=== PATIENT | female | born 1935 | race African-American/Black ===

== ENCOUNTER 2021-09-14 19:35 | Inpatient (IN) | payer MEDICARE ==
[~2021-09-14] VITALS: Ht 162.6 cm; Wt 72.1 kg
[2021-09-14 19:45] VITALS: BP 98/58
[2021-09-14] MEDS ORDERED: LABETALOL 20 MG/4 ML DISP.SYRIN. IVP PRN (20:00)
[2021-09-14] MEDS ORDERED: ALBUTEROL SULFATE 2.5 MG/3 ML NEBU. NEB PRN (20:00)
[2021-09-14] MEDS ORDERED: TIOT18CA IH (20:14)
[2021-09-14] MEDS: LACTOBACILLUS RHAMNOSUS GG 1 CAPSULE. PO SCH (21:12)
[2021-09-14 22:01] VITALS: BP 113/71
--- NOTE | 2021-09-14 22:09 | NUR ---
Pt to room @ 1940 via EMS, tx from [facility]. Limited admission info due to patient's mental status, with confusion. Most information gathered from report and transfer papers [facility]. No c/o discomfort @ this time, O2 @ 96-98% @ 4L. Will continue to monitor.
[2021-09-15 03:00] VITALS: BP 128/84
[2021-09-15 07:00] VITALS: BP 130/79
[2021-09-15] MEDS: IPRATRPIUM/ALBUTEROL 0.5/2.5MG 3 ML NEBU. NEB SCH ×4 (07:50→20:50)
[2021-09-15] MEDS ORDERED: ASPIRIN CHEWABLE 81 MG TABLET. PO SCH (08:00)
--- NOTE | 2021-09-15 08:30 | PDOC ---
Provider Note Date of Service: DATE: 09/15/21 TIME: 08:24 Provider Note IR NOTE Radiograph reviewed. Left sided volume loss with leftward mediastinal shift and opacification of the left hemithorax. Appearance consistent with atelectasis, most commonly from mucous plugging or other central obstruction. Patient remains lethargic, but with stable vital signs Sats in normal range on 3 L O2. Pulm consult pending. No IR intervention planned at current. Depending on plans for Bronch or other intervention, and results thereof, consider follow up CT chest with contrast. Justifications for Admission Other Justification MALIK PERSON MD Sep 15, 2021 08:29
[2021-09-15] MEDS ORDERED: NON FORMULARY ITEM (Tiotropium Bromide (Spiriva) 1 CAP) IH SCH (09:00)
[2021-09-15] MEDS: LACTOBACILLUS RHAMNOSUS GG 1 CAPSULE. PO SCH ×2 (09:00→22:16)
--- NOTE | 2021-09-15 09:53 | CONS ---
DATE OF CONSULTATION: 09/15/2021 PULMONARY CONSULTATION ATTENDING PHYSICIAN: Alem Bella MD REASON FOR CONSULTATION: Collapsed lung. HISTORY OF PRESENT ILLNESS: The patient is an 85-year-old female who was brought into [facility] with altered mental status. The patient was in normal health few hours prior to admission. She was found with a black liquid all over her bed and her mouth. She also had black stools. The patient at baseline is able to talk and walk with assistance. She had a UTI a month ago and also had COVID few months ago. She has chronic right-sided facial droop at baseline. No reported history of stroke in the past. The patient had a CT chest done on the , which was reviewed by me and it showed some mild ground glass infiltrates on the left lung, but no definite consolidation or collapse was observed. She then had a followup chest x-ray during this ER visit and was found to have a total whiteout left lung. Appeared to be an ipsilateral mediastinal shift suggestive of more of a mucus plug. There appeared to be some pleural effusion as well. The patient is currently on oxygen at 3 liters. She does not communicate. She says few words, but I am unable to obtain any history from the patient. PAST MEDICAL HISTORY: Significant for history of UTI a month ago, history of COVID 2 months ago. Unable to obtain any further medical history from the patient. Diverticulosis of the sigmoid colon and moderate size hiatal hernia. PAST SURGICAL HISTORY: No recent surgeries. ALLERGIES: None. REVIEW OF SYSTEMS: Unable to obtain from the patient. MEDICATIONS: Reviewed, which included Rocephin, DuoNebs. SOCIAL HISTORY: Unable to obtain. PHYSICAL EXAMINATION: VITAL SIGNS: Reviewed. Her blood pressure is 128/84, afebrile, pulse ox is 99% on 3 liters. NECK: Supple. LUNGS: With diminished breath sounds, left lung. CARDIOVASCULAR: With a regular rate. ABDOMEN: Soft, nontender. EXTREMITIES: With no pitting edema. DIAGNOSTIC STUDIES: The patient had a CTA chest at [facility] and there was some periventricular white matter consistent with chronic small vessel ischemic disease. There was some cerebral atrophy. There was calcified meningioma suspected. No intracranial hemorrhage or acute ischemic events noted. Chest x-ray as discussed above. LABORATORY DATA: From the showed a white cell count 11.9, hemoglobin 7.2 and platelets are 408. Her pH was 7.48, pCO2 of 27 and a pO2 of 71 on the 19th. BUN 11 and creatinine 0.5. IMPRESSION: 1. Acute hypoxic respiratory failure secondary to encephalopathy and collapsed left lung. 2. Abnormal chest x-ray with near complete opacification of left lung with ipsilateral mediastinal shift. This is suggestive of mucus plug. There may be a component of pleural effusion as well. She has a hemoglobin down in the 7 range. Need to rule out any hemothorax as well. 3. Encephalopathy. CT head negative for any ischemic event or acute hemorrhage. We will obtain a followup arterial blood gases. 4. History of urinary tract infection a month ago. 5. History of COVID-19 two months ago. 6. The patient initially presented at [facility] with hypotension and was fluid resuscitated. Blood pressure is stabilized. RECOMMENDATIONS: 1. Continue with present oxygen at 3 liters. 2. Obtain arterial blood gases to rule out any worsening hypercapnia. 3. Obtain noncontrast CT chest to rule out any significant pleural effusion. 4. If CT chest is negative for any significant effusion, then we will consider bronchoscopy. 5. Continue present bronchodilators. 6. Empiric antibiotics. 7. We will also reach out to the family as well. 8. Discussed with RN. We will follow along with you. addend: d/w son for possible Bronch. R/B explained. He agrees to proceed NICOLE/DENZEL FRASER: Sonja TID: [id number] [facility]
[2021-09-15 10:34] LABS: BASE EXCESS ABG 5 mmol/L (-3-3); HCO3 ABG 28 mmol/L (21-28); PCO2 ABG 38 mmHg (35-46); PO2 ABG 66 mmHg (65-108); SAT O2 ABG 92 % (92-99)
[2021-09-15 10:37] LABS: FIO2 ABG 3 LPM VIA NC
--- NOTE | 2021-09-15 10:41 | NUR ---
SW following. Discussed with RN, pt from home with son in for 5 months a year and then with other son in [place] for 7 months a year, 3L (does not use oxygen at home), dysphagia I diet. Pulmonology following. PT/OT/ST ordered. SW will continue to follow.
--- NOTE | 2021-09-15 10:50 | RAD ---
CT THORAX WO History: Fusion. Mucous plugging. Shortness of breath. Technique: Noncontrast CT of the chest was performed. Coronal and sagittal reconstructions were perfo rmed. Exposure: One or more of the following individualized dose reduction techniques were utilized for thi s examination: 1. Automated exposure control 2. Adjustment of the mA and/or kV according to patient size 3. Use of iterative reconstruction technique. Comparison: CT September 10, 2021. Radiograph September 14, 2021 Findings: Chest: Left upper and lower lobe complete atelectasis. Filling defects within the bilateral upper and lower lobe bronchi. Mediastinal shift to the left. Moderate left pleural effusion. Mild scattered right lung ground glass opacities. Coronary artery calcifications. Large hiatal hernia. No pathologic lymphadenopathy. Mild body wall ed alf. Upper abdomen: Several hepatic hypodensities largest measures 1.6 cm, unchanged compared to prior. Bones: No pathologic osseous lesions. Impression: 1. Complete left upper and lower lobe atelectasis with diffuse filling defects in the bronchi, may r epresent mucus plugging. Recommend follow-up after treatment to exclude endobronchial mass. 2. Moderate left pleural effusion. 3. Mild ground glass opacities within the right lung, may represent infectious or inflammatory proce ss. Recommend attention on follow-up. 4. Unchanged small hepatic hypodensities. Electronically signed by: Reji Alfaro DO (09/15/2021 10:47 AM) [id number]
[2021-09-15 11:00] VITALS: BP 124/75
--- NOTE | 2021-09-15 11:23 | PN ---
DATE: 09/15/2021 SUBJECTIVE: The patient was transferred yesterday from [facility] for a total whiteout of the left hemithorax with mediastinal shift to the left, indicating probably mucus plugging. She is now on 3 liters of oxygen. The patient is demented, does not give any useful information, offered no complaint. PHYSICAL EXAMINATION: GENERAL: When I saw her today, she looked pale, not jaundiced or cyanosed, no lymphadenopathy, no thyromegaly, no jugular venous distention. No limb edema. VITAL SIGNS: Her heart rate was 87, blood pressure is 130/79, temperature was 99.1, respiratory rate was 28 and oxygen saturation was 99% on 3 liters of oxygen. HEAD, EYES, EARS, NOSE AND THROAT: Normocephalic, atraumatic. NECK: Supple. HEART: Normal first and second heart sounds. No gallop or murmur. CHEST: Showed central trachea. Good chest expansion with air entry on the right side, absent breath sound on the left side. ABDOMEN: Scaphoid, soft, nontender. NEUROLOGIC: She is demented, but without any obvious lateralizing sign. LABORATORY DATA: Her blood gas this morning showed a pH of 7.50, pCO2 of 38, pO2 of 66, bicarbonate 28 and oxygen saturation was 92% on 3 liters of oxygen by nasal cannula. Her other lab work are still pending. She did have a CT scan of the chest without contrast that showed a complete left upper and lower lobe atelectasis with diffuse filling defects in the bronchi, represent mucus plugging. Recommend followup after treatment to exclude endobronchial mass. Moderate left sided pleural effusion. Mild ground glass opacities within the right lung, may represent infectious or inflammatory process. Recommend followup. Unchanged small hepatic hypodensities. ASSESSMENT: Complete left upper and left lower lobe atelectasis with diffuse filling defects in the bronchi, may represent mucus plugging, moderate left side pleural effusion. The patient has also urinary tract infection with growth of Aerococcus urinae for which she is on IV ceftriaxone. PLAN: My plan is to start her on IV fluid in the form of D5 half normal at 75 mL, continue with IV antibiotic. She will be n.p.o. from midnight as she is scheduled for bronchoscopy tomorrow. Her hemoglobin is drifting down and if her hemoglobin is 7 or less than 7, we will her transfuse 1 unit of blood. IVANNA DR: Blair TID: [id number]
[2021-09-15] MEDS: IV DEXTROSE 5 %-0.45 % NACL 1,000 ML IV SCH ×2 (11:27→22:18)
[2021-09-15 11:28] LABS: BASO # 0.1 x10^3/uL (0.0-0.2); BASO % 1 % (0-3); EOS # 0.1 x10^3/uL (0.0-0.7); EOS % 1 % (0-3); HEMATOCRIT 25.1 % (36.0-47.0); HEMOGLOBIN 7.4 g/dL (12.0-15.5); LYMPH # 1.8 x10^3/uL (1.0-4.8); LYMPH % 20 % (24-48); MEAN CORPUSCULAR HEMOGLOBIN 22 pg (25-35); MEAN CORPUSCULAR HGB CONC 30 g/dL (31-37); MEAN CORPUSCULAR VOLUME 74 fL (79-100); MONO # 0.7 x10^3/uL (0.0-1.1); MONO % 8 % (0-9); NEUT # 6.5 x10^3/uL (1.8-7.7); NEUT % 70 % (31-73); PLATELET COUNT 453 x10^3/uL (140-400); WHITE BLOOD COUNT 9.3 x10^3/uL (4.0-11.0)
[2021-09-15 11:36] LABS: CALCIUM 7.7 mg/dL (8.5-10.1); CREATININE 0.6 mg/dL (0.6-1.0); GFR 114.7; MAGNESIUM 1.8 mg/dL (1.8-2.4)
--- NOTE | 2021-09-15 11:36 | HP ---
DATE OF SERVICE: 09/15/2021 ADMIT DATE: 09/14/2021 HISTORY OF PRESENT ILLNESS: The patient is an 85-year-old -[place] female patient who was transferred yesterday from [facility]. A chest x-ray done yesterday showed that she has total collapse of the left lung. After discussion with the family regarding options of treatment, they opted for transferring her to [facility] to consult the tub rider for possible bronchoscopy and removal of mucus plugging. A chest x-ray done on admission and also CT scan showed, at that time, her left lung was completely normal and fully expanded. Patient herself is very demented and does not give any useful information and as she was seen yesterday by the speech therapist and recommended pureed diet and thin liquid. PAST MEDICAL HISTORY: Significant for dementia, bronchial asthma, degenerative arthritis, anemia of chronic disease. PAST SURGICAL HISTORY: Unremarkable. ALLERGIES: She has no known drug allergies. FAMILY HISTORY: Noncontributory. SOCIAL HISTORY: She is a nonsmoker, nondrinker. She is actually from [place]. Initially, she was admitted to [facility] with a urinary tract infection and severe sepsis and eventually she grew aerococcus urinae and has been responding to treatment with IV ceftriaxone, so I continued that. PHYSICAL EXAMINATION: GENERAL: When I saw her on the day of transfer, she was pale, not jaundiced, cyanosed, no lymphadenopathy, no thyromegaly, no jugular venous distention. No lower limb edema. VITAL SIGNS: Her heart rate was 90, blood pressure was 140/88, temperature was 98.6, respiratory rate was 18 and oxygen saturation was 94% on room air on 2 liters of oxygen. HEAD, EYES, EARS, NOSE, AND THROAT: Normocephalic, atraumatic. NECK: Supple. HEART: Showed normal first and second heart sounds. No gallop, rub or murmur. CHEST: Shows central trachea. Good chest expansion with air entry on the right side. No chest expansion and no air entry on the left side. ABDOMEN: Scaphoid, soft, nontender. NEUROLOGIC: She is pleasantly demented, but without any obvious lateralizing sign. All her cranial nerves intact. She moves extremities spontaneously, but she is mostly bedbound. LABORATORY DATA: Her lab work yesterday showed that her white cell count is down to 10,500, hemoglobin 7.4, hematocrit 24, MCV 75 and platelet count 438,000. Her chemistry showed a serum sodium 139, potassium 3.6, chloride 104, bicarbonate 29, anion gap of 6, BUN 4, creatinine 0.4. Estimated GFR was 183 mL per minute. Her glucose 97, calcium was 7.3. Total bilirubin, AST, ALT, alkaline phosphatase were normal. Beta natriuretic peptide was 4117, total protein 4.8, albumin was 1.8. Her arterial blood gases on admission showed a pH of 7.48, pCO2 of 27, pO2 of 271, bicarbonate 20, and oxygen saturation was 95% on room air. Her prothrombin time and INR slightly elevated, APTT was normal. Urinalysis showed that she has moderate amount of bacteria rare rbc's and rare wbc's. ASSESSMENT: In summary, this is an 85-year-old -[place] female patient who was transferred to [facility] with a left total lung collapse, likely due to mucus plugging with mediastinal shift towards the left side. 2. Sepsis syndrome that has improved. 3. Urinary tract infection. 4. Anemia of chronic disease. 5. Profound underlying dementia. 6. Generalized debility. PLAN: To continue all her medications that she was getting at [facility], have consulted Dr. Crawley, the tub rider for possible bronchoscopy. Meanwhile, I will repeat her lab work and decide on further management. She was kept n.p.o. for possible bronchoscopy. TERRENCE FRASER: Blair TID: [id number]
[2021-09-15] MEDS ORDERED: POTASSIUM BICARB 20 MEQ EFFERVESCENT TABLET. PO ONE ×2 (12:00→17:00)
[2021-09-15 12:11] LABS: ANISOCYTOSIS SLIGHT; PLT ESTIMATE INCREASED (ADEQUATE)
[2021-09-15 12:12] LABS: MICROCYTOSIS PRESENT; OVALOCYTES OCC; POLYCHROMASIA OCCASIONAL; TARGET CELLS OCC
[2021-09-15 15:00] VITALS: BP 121/69
[2021-09-15] MEDS ORDERED: cefTRIAXone IV Push 1 GM VIAL. IVP SCH (18:00)
[2021-09-15 19:00] VITALS: BP 121/73
[2021-09-15 22:58] VITALS: BP 125/74
[2021-09-16] VITALS (16 sets, daily range): BP systolic 91–146; BP diastolic 54–93
[2021-09-16 05:54] LABS: HEMOGLOBIN 7.1 g/dL (12.0-15.5); RED BLOOD COUNT 3.13 x10^6/uL (3.50-5.40); RED CELL DISTRIBUTION WIDTH 16.9 % (11.5-14.5); WHITE BLOOD COUNT 9.2 x10^3/uL (4.0-11.0)
[2021-09-16] MEDS ORDERED: MORPHINE SULFATE 2 MG/ML INJ. IVP PRN (06:00)
[2021-09-16] MEDS ORDERED: IV RINGERS,LACTATED 1000ML 1,000 ML IV SCH (06:00)
[2021-09-16] MEDS ORDERED: HYDROmorphone 2 MG/ML INJ. IVP PRN (06:00)
[2021-09-16] MEDS ORDERED: fentaNYL PF VIAL 100 MCG/2 ML VIAL IVP PRN ×2 (06:00)
[2021-09-16] MEDS ORDERED: PROCHLORPERAZINE 10 MG/2 ML VIAL. IVP PRN (06:00)
[2021-09-16 06:17] LABS: ALBUMIN 1.9 g/dL (3.4-5.0); ALBUMIN/GLOBULIN RATIO 0.5 (1.0-1.7); CALCIUM 7.8 mg/dL (8.5-10.1); CREATININE 0.6 mg/dL (0.6-1.0); GFR 114.7; POTASSIUM 3.6 mmol/L (3.5-5.1); TOTAL BILIRUBIN 0.2 mg/dL (0.2-1.0); TOTAL PROTEIN 5.5 g/dL (6.4-8.2)
[2021-09-16] MEDS: IPRATRPIUM/ALBUTEROL 0.5/2.5MG 3 ML NEBU. NEB SCH ×4 (08:00→20:00)
[2021-09-16] MEDS: LACTOBACILLUS RHAMNOSUS GG 1 CAPSULE. PO SCH ×2 (09:00→22:51)
[2021-09-16] MEDS ORDERED: LIDOCAINE 2% VISCOUS 100 ML BOTTLE. MM PRN (09:30)
[2021-09-16] MEDS ORDERED: ALBUTEROL SULFATE 2.5 MG/3 ML NEBU. NEB PRN (09:30)
[2021-09-16] MEDS ORDERED: LIDOCAINE 1% Multi-Dose 20 ML VIAL. INJ PRN (09:30)
[2021-09-16] MEDS ORDERED: LIDOCAINE 4% TOPICAL 50 ML SOLUTION. MM PRN (09:30)
[2021-09-16] MEDS ORDERED: EPINEPHrine 1 MG/ML VIAL INJ PRN (09:30)
[2021-09-16] MEDS ORDERED: 0.9 % SODIUM CHLORIDE 10 ML DISP.SYRIN. IV PRN (09:30)
--- NOTE | 2021-09-16 09:35 | PDOC ---
PULMONARY PROGRESS NOTES DATE: 09/16/21 TIME: 09:33 Subjective Patient remains on nasal cannula oxygen, does not appear to be in any distress, No overnight concerns from nursing, afebrile Vitals Vital Signs Date Time Temp Pulse Resp B/P (MAP) Pulse Ox O2 Delivery O2 Flow Rate FiO2 09/16/21 08:57 97.4 83 22 100 97.4 09/16/21 08:53 Nasal Cannula 3.0 09/16/21 07:00 127/69 (88) Comments Patient is unable to report review of systems secondary to current clinical state, patient has significant underlying dementia General: Alert Lungs: Other (diminshed ) Cardiovascular: S1, S2 Abdomen: Soft, Non-tender Neuro Exam: Alert Extremities: Other (trace BLE) Skin: Warm, Dry Labs Laboratory Tests Test 09/15/21 10:15 09/15/21 11:15 09/16/21 05:15 O2 Saturation 92 % (92-99) Arterial Blood pH 7.50 (7.35-7.45) Arterial Blood pCO2 at Patient Temp 38 mmHg (35-46) Arterial Blood pO2 at Patient Temp 66 mmHg (65-108) Arterial Blood HCO3 28 mmol/L (21-28) Arterial Blood Base Excess 5 mmol/L (-3-3) FiO2 3 lpm via nc White Blood Count 9.3 x10^3/uL (4.0-11.0) 9.2 x10^3/uL (4.0-11.0) Red Blood Count 3.40 x10^6/uL (3.50-5.40) 3.13 x10^6/uL (3.50-5.40) Hemoglobin 7.4 g/dL (12.0-15.5) 7.1 g/dL (12.0-15.5) Hematocrit 25.1 % (36.0-47.0) 23.0 % (36.0-47.0) Mean Corpuscular Volume 74 fL (79-100) 74 fL (79-100) Mean Corpuscular Hemoglobin 22 pg (25-35) 23 pg (25-35) Mean Corpuscular Hemoglobin Concent 30 g/dL (31-37) 31 g/dL (31-37) Red Cell Distribution Width 17.0 % (11.5-14.5) 16.9 % (11.5-14.5) Platelet Count 453 x10^3/uL (140-400) 465 x10^3/uL (140-400) Neutrophils (%) (Auto) 70 % (31-73) Lymphocytes (%) (Auto) 20 % (24-48) Monocytes (%) (Auto) 8 % (0-9) Eosinophils (%) (Auto) 1 % (0-3) Basophils (%) (Auto) 1 % (0-3) Neutrophils # (Auto) 6.5 x10^3/uL (1.8-7.7) Lymphocytes # (Auto) 1.8 x10^3/uL (1.0-4.8) Monocytes # (Auto) 0.7 x10^3/uL (0.0-1.1) Eosinophils # (Auto) 0.1 x10^3/uL (0.0-0.7) Basophils # (Auto) 0.1 x10^3/uL (0.0-0.2) Platelet Estimate Increased (ADEQUATE) Polychromasia Occasional Anisocytosis Slight Microcytosis Present Target Cells Occ Ovalocytes Occ Sodium Level 144 mmol/L (136-145) 141 mmol/L (136-145) Potassium Level 3.0 mmol/L (3.5-5.1) 3.6 mmol/L (3.5-5.1) Chloride Level 107 mmol/L (98-107) 106 mmol/L (98-107) Carbon Dioxide Level 29 mmol/L (21-32) 32 mmol/L (21-32) Anion Gap 8 (6-14) 3 (6-14) Blood Urea Nitrogen 9 mg/dL (7-20) 9 mg/dL (7-20) Creatinine 0.6 mg/dL (0.6-1.0) 0.6 mg/dL (0.6-1.0) Estimated GFR (Cockcroft-Gault) 114.7 114.7 Glucose Level 119 mg/dL (70-99) 115 mg/dL (70-99) Calcium Level 7.7 mg/dL (8.5-10.1) 7.8 mg/dL (8.5-10.1) Magnesium Level 1.8 mg/dL (1.8-2.4) BUN/Creatinine Ratio 15 (6-20) Total Bilirubin 0.2 mg/dL (0.2-1.0) Aspartate Amino Transf (AST/SGOT) 10 U/L (15-37) Alanine Aminotransferase (ALT/SGPT) 8 U/L (14-59) Alkaline Phosphatase 78 U/L (46-116) Total Protein 5.5 g/dL (6.4-8.2) Albumin 1.9 g/dL (3.4-5.0) Albumin/Globulin Ratio 0.5 (1.0-1.7) Laboratory Tests Test 09/15/21 10:15 09/15/21 11:15 09/16/21 05:15 O2 Saturation 92 % (92-99) Arterial Blood pH 7.50 (7.35-7.45) Arterial Blood pCO2 at Patient Temp 38 mmHg (35-46) Arterial Blood pO2 at Patient Temp 66 mmHg (65-108) Arterial Blood HCO3 28 mmol/L (21-28) Arterial Blood Base Excess 5 mmol/L (-3-3) FiO2 3 lpm via nc White Blood Count 9.3 x10^3/uL (4.0-11.0) 9.2 x10^3/uL (4.0-11.0) Red Blood Count 3.40 x10^6/uL (3.50-5.40) 3.13 x10^6/uL (3.50-5.40) Hemoglobin 7.4 g/dL (12.0-15.5) 7.1 g/dL (12.0-15.5) Hematocrit 25.1 % (36.0-47.0) 23.0 % (36.0-47.0) Mean Corpuscular Volume 74 fL (79-100) 74 fL (79-100) Mean Corpuscular Hemoglobin 22 pg (25-35) 23 pg (25-35) Mean Corpuscular Hemoglobin Concent 30 g/dL (31-37) 31 g/dL (31-37) Red Cell Distribution Width 17.0 % (11.5-14.5) 16.9 % (11.5-14.5) Platelet Count 453 x10^3/uL (140-400) 465 x10^3/uL (140-400) Neutrophils (%) (Auto) 70 % (31-73) Lymphocytes (%) (Auto) 20 % (24-48) Monocytes (%) (Auto) 8 % (0-9) Eosinophils (%) (Auto) 1 % (0-3) Basophils (%) (Auto) 1 % (0-3) Neutrophils # (Auto) 6.5 x10^3/uL (1.8-7.7) Lymphocytes # (Auto) 1.8 x10^3/uL (1.0-4.8) Monocytes # (Auto) 0.7 x10^3/uL (0.0-1.1) Eosinophils # (Auto) 0.1 x10^3/uL (0.0-0.7) Basophils # (Auto) 0.1 x10^3/uL (0.0-0.2) Platelet Estimate Increased (ADEQUATE) Polychromasia Occasional Anisocytosis Slight Microcytosis Present Target Cells Occ Ovalocytes Occ Sodium Level 144 mmol/L (136-145) 141 mmol/L (136-145) Potassium Level 3.0 mmol/L (3.5-5.1) 3.6 mmol/L (3.5-5.1) Chloride Level 107 mmol/L (98-107) 106 mmol/L (98-107) Carbon Dioxide Level 29 mmol/L (21-32) 32 mmol/L (21-32) Anion Gap 8 (6-14) 3 (6-14) Blood Urea Nitrogen 9 mg/dL (7-20) 9 mg/dL (7-20) Creatinine 0.6 mg/dL (0.6-1.0) 0.6 mg/dL (0.6-1.0) Estimated GFR (Cockcroft-Gault) 114.7 114.7 Glucose Level 119 mg/dL (70-99) 115 mg/dL (70-99) Calcium Level 7.7 mg/dL (8.5-10.1) 7.8 mg/dL (8.5-10.1) Magnesium Level 1.8 mg/dL (1.8-2.4) BUN/Creatinine Ratio 15 (6-20) Total Bilirubin 0.2 mg/dL (0.2-1.0) Aspartate Amino Transf (AST/SGOT) 10 U/L (15-37) Alanine Aminotransferase (ALT/SGPT) 8 U/L (14-59) Alkaline Phosphatase 78 U/L (46-116) Total Protein 5.5 g/dL (6.4-8.2) Albumin 1.9 g/dL (3.4-5.0) Albumin/Globulin Ratio 0.5 (1.0-1.7) Medications Active Scripts Medications Dose Route/Sig Max Daily Dose Days Date Category Spiriva (Tiotropium Saragosa) 18 Mcg Cap.w.dev 1 Cap IH DAILY 09/14/21 Reported Impression . IMPRESSION: 1. Acute hypoxic respiratory failure secondary to encephalopathy and collapsed left lung. 2. Abnormal chest x-ray with near complete opacification of left lung with ipsilateral mediastinal shift. This is suggestive of mucus plug. There may be a component of pleural effusion as well. She has a hemoglobin down in the 7 range. Need to rule out any hemothorax as well. 3. Encephalopathy. CT head negative for any ischemic event or acute hemorrhage. We will obtain a followup arterial blood gases. 4. History of urinary tract infection a month ago. 5. History of COVID-19 two months ago. 6. The patient initially presented at [facility] with hypotension and was fluid resuscitated. Blood pressure is stabilized. Plan . Updated 09/16/2021 Continue supplemental oxygen, currently on 3 L nasal cannula Bronchodilators ABG reviewed, within normal limits CTA of chest reviewed. Mostly left-sided mucous plug. There is associated pleural effusion. Clinically less likely hemothorax. Plan for bronchoscopy at 10am, remains n.p.o. for procedure Continue empiric antibiotics, follow cultures DVT/GI prophylaxis Discussed with RN Patient is a DO NOT RESUSCITATE At discussed with the patient's son yesterday agreed to proceed with the procedure. He understands the risk with sedation. He also indicated that this is patient's baseline dementia 09/15/21 RECOMMENDATIONS: 1. Continue with present oxygen at 3 liters. 2. Obtain arterial blood gases to rule out any worsening hypercapnia. 3. Obtain noncontrast CT chest to rule out any significant pleural effusion. 4. If CT chest is negative for any significant effusion, then we will consider bronchoscopy. 5. Continue present bronchodilators. 6. Empiric antibiotics. 7. We will also reach out to the family as well. 8. Discussed with RN. We will follow along with you. addend: d/w son for possible Bronch. R/B explained. He agrees to proceed ALINA HORVATH MD Sep 16, 2021 09:35
[2021-09-16] MEDS ORDERED: EPINEPHrine 1 MG/ML VIAL ONE (09:36)
[2021-09-16] MEDS ORDERED: PROPOFOL 10 MG/ML (20ML) VIAL. IV ONE (10:24)
--- NOTE | 2021-09-16 10:42 | NUR ---
SW following. Discussed with RN, pt from home with son, 3L (does not use oxygen at home), NPO. Pulmonology following - pt having a bronchoscopy today and has a chest tube. Pt not medically stable for discharge. SW will continue to follow.
[2021-09-16] MEDS ORDERED: PIP/TAZO PER PHARMACY MC PRN (10:45)
[2021-09-16] MEDS: PIPERACILLIN/TAZOBACTAM 3.375 GM in IV NORMAL SALINE 50ML 50 ML IV SCH ×3 (11:50→22:51)
--- NOTE | 2021-09-16 12:23 | OP ---
DATE OF SURGERY: 09/16/2021 PROCEDURE NOTE PROCEDURE: Bronchoscopy. INDICATION: Collapsed left lung secondary to mucus plug. DESCRIPTION OF PROCEDURE: Informed consent was obtained from the patient's son. All the risks and benefits were explained. He agreed to proceed with the procedure. Propofol sedation was used by Anesthesia. Bronch was introduced through the left nostril. The upper airway was passed. White secretions were seen, which were aspirated. The vocal cords moved equally with respiration. Trachea was entered. Upon inspection of the left mainstem, there was significant mucus plugging seen, which was all the way up to the left mainstem. There were minimal right proximal mainstem secretions seen as well. Therapeutic bronchoscopy performed. All secretions were removed and patency of the airway achieved. Bronchial wash was performed. The left mainstem was connected. No endobronchial lesions seen. All the subsegments of left upper lobe, lingula, left lower lobe, right upper lobe, right middle lobe and right lower lobe were examined. The patient tolerated the procedure well. IMPRESSION: 1. Significant mucus plugs seen in the left mainstem bronchus and also minimally in the right mainstem bronchus. 2. Therapeutic bronchoscope performed. All secretions were removed. Patency of the airway achieved. 3. No endobronchial lesions seen. 4. Bronchial wash performed from the left mainstem and sent for appropriate studies. PALLAVI DR: Sonja TID: [id number]
[2021-09-16] MEDS: IV DEXTROSE 5 %-0.45 % NACL 1,000 ML IV SCH (16:00)
[2021-09-17] VITALS (8 sets, daily range): BP systolic 70–141; BP diastolic 46–97
[2021-09-17] MEDS ORDERED: DIGOXIN IV 500 MCG/2 ML AMPUL. IV ONE (00:30)
[2021-09-17] MEDS: IV DEXTROSE 5 %-0.45 % NACL 1,000 ML IV SCH (04:30)
[2021-09-17] MEDS: PIPERACILLIN/TAZOBACTAM 3.375 GM in IV NORMAL SALINE 50ML 50 ML IV SCH ×3 (06:31→17:18)
[2021-09-17] MEDS: IPRATRPIUM/ALBUTEROL 0.5/2.5MG 3 ML NEBU. NEB SCH ×4 (07:13→20:43)
[2021-09-17] MEDS: LACTOBACILLUS RHAMNOSUS GG 1 CAPSULE. PO SCH ×2 (08:11→20:35)
--- NOTE | 2021-09-17 09:32 | PDOC ---
PULMONARY PROGRESS NOTES DATE: 09/17/21 TIME: 09:30 Subjective Patient remains on nasal cannula oxygen, does not appear to be in any distress, No overnight concerns from nursing, afebrile Status post bronchoscopy 09/16/2021 Vitals Vital Signs Date Time Temp Pulse Resp B/P (MAP) Pulse Ox O2 Delivery O2 Flow Rate FiO2 09/17/21 08:00 Nasal Cannula 3.0 09/17/21 07:13 97 09/17/21 07:00 98.3 111 24 141/91 (108) 98.3 Comments Patient is unable to report review of systems secondary to current clinical state, patient has significant underlying dementia General: Alert Lungs: Other (diminshed ) Cardiovascular: S1, S2 Abdomen: Soft, Non-tender Neuro Exam: Alert Extremities: Other (trace BLE) Skin: Warm, Dry Labs Laboratory Tests Test 09/15/21 10:15 09/15/21 11:15 09/16/21 05:15 O2 Saturation 92 % (92-99) Arterial Blood pH 7.50 (7.35-7.45) Arterial Blood pCO2 at Patient Temp 38 mmHg (35-46) Arterial Blood pO2 at Patient Temp 66 mmHg (65-108) Arterial Blood HCO3 28 mmol/L (21-28) Arterial Blood Base Excess 5 mmol/L (-3-3) FiO2 3 lpm via nc White Blood Count 9.3 x10^3/uL (4.0-11.0) 9.2 x10^3/uL (4.0-11.0) Red Blood Count 3.40 x10^6/uL (3.50-5.40) 3.13 x10^6/uL (3.50-5.40) Hemoglobin 7.4 g/dL (12.0-15.5) 7.1 g/dL (12.0-15.5) Hematocrit 25.1 % (36.0-47.0) 23.0 % (36.0-47.0) Mean Corpuscular Volume 74 fL (79-100) 74 fL (79-100) Mean Corpuscular Hemoglobin 22 pg (25-35) 23 pg (25-35) Mean Corpuscular Hemoglobin Concent 30 g/dL (31-37) 31 g/dL (31-37) Red Cell Distribution Width 17.0 % (11.5-14.5) 16.9 % (11.5-14.5) Platelet Count 453 x10^3/uL (140-400) 465 x10^3/uL (140-400) Neutrophils (%) (Auto) 70 % (31-73) Lymphocytes (%) (Auto) 20 % (24-48) Monocytes (%) (Auto) 8 % (0-9) Eosinophils (%) (Auto) 1 % (0-3) Basophils (%) (Auto) 1 % (0-3) Neutrophils # (Auto) 6.5 x10^3/uL (1.8-7.7) Lymphocytes # (Auto) 1.8 x10^3/uL (1.0-4.8) Monocytes # (Auto) 0.7 x10^3/uL (0.0-1.1) Eosinophils # (Auto) 0.1 x10^3/uL (0.0-0.7) Basophils # (Auto) 0.1 x10^3/uL (0.0-0.2) Platelet Estimate Increased (ADEQUATE) Polychromasia Occasional Anisocytosis Slight Microcytosis Present Target Cells Occ Ovalocytes Occ Sodium Level 144 mmol/L (136-145) 141 mmol/L (136-145) Potassium Level 3.0 mmol/L (3.5-5.1) 3.6 mmol/L (3.5-5.1) Chloride Level 107 mmol/L (98-107) 106 mmol/L (98-107) Carbon Dioxide Level 29 mmol/L (21-32) 32 mmol/L (21-32) Anion Gap 8 (6-14) 3 (6-14) Blood Urea Nitrogen 9 mg/dL (7-20) 9 mg/dL (7-20) Creatinine 0.6 mg/dL (0.6-1.0) 0.6 mg/dL (0.6-1.0) Estimated GFR (Cockcroft-Gault) 114.7 114.7 Glucose Level 119 mg/dL (70-99) 115 mg/dL (70-99) Calcium Level 7.7 mg/dL (8.5-10.1) 7.8 mg/dL (8.5-10.1) Magnesium Level 1.8 mg/dL (1.8-2.4) BUN/Creatinine Ratio 15 (6-20) Total Bilirubin 0.2 mg/dL (0.2-1.0) Aspartate Amino Transf (AST/SGOT) 10 U/L (15-37) Alanine Aminotransferase (ALT/SGPT) 8 U/L (14-59) Alkaline Phosphatase 78 U/L (46-116) Total Protein 5.5 g/dL (6.4-8.2) Albumin 1.9 g/dL (3.4-5.0) Albumin/Globulin Ratio 0.5 (1.0-1.7) Medications Active Scripts Medications Dose Route/Sig Max Daily Dose Days Date Category Spiriva (Tiotropium [place]) 18 Mcg Cap.w.dev 1 Cap IH DAILY 09/14/21 Reported Impression . IMPRESSION: 1. Acute hypoxic respiratory failure secondary to encephalopathy and collapsed left lung. 2. Abnormal chest x-ray with near complete opacification of left lung with ipsilateral mediastinal shift. This is suggestive of mucus plug. There may be a component of pleural effusion as well. She has a hemoglobin down in the 7 range. Need to rule out any hemothorax as well. 3. Encephalopathy. CT head negative for any ischemic event or acute hemorrhage. We will obtain a followup arterial blood gases. 4. History of urinary tract infection a month ago. 5. History of COVID-19 two months ago. 6. The patient initially presented at [facility] with hypotension and was fluid resuscitated. Blood pressure is stabilized. Plan . Updated 09/17/2021 Continue supplemental oxygen, currently on 3 L nasal cannula Bronchodilators Continue antibiotics CTA of chest reviewed. Mostly left-sided mucous plug. There is associated pleural effusion. Clinically less likely hemothorax. Status post bronchoscopy 09/17/2021, chest x-ray today shows ongoing left lobe complete atelectasis likely secondary to mucous plugging, follow-up bronc washings, repeat chest x-ray on Sunday patient may benefit from repeat bronchoscopy on Sunday. DVT/GI prophylaxis Discussed with RN Patient is a DO NOT RESUSCITATE Updated 09/16/2021 Continue supplemental oxygen, currently on 3 L nasal cannula Bronchodilators ABG reviewed, within normal limits CTA of chest reviewed. Mostly left-sided mucous plug. There is associated p leural effusion. Clinically less likely hemothorax. Plan for bronchoscopy at 10am, remains n.p.o. for procedure Continue empiric antibiotics, follow cultures DVT/GI prophylaxis Discussed with RN Patient is a DO NOT RESUSCITATE At discussed with the patient's son yesterday agreed to proceed with the procedure. He understands the risk with sedation. He also indicated that this is patient's baseline dementia 09/15/21 RECOMMENDATIONS: 1. Continue with present oxygen at 3 liters. 2. Obtain arterial blood gases to rule out any worsening hypercapnia. 3. Obtain noncontrast CT chest to rule out any significant pleural effusion. 4. If CT chest is negative for any significant effusion, then we will consider bronchoscopy. 5. Continue present bronchodilators. 6. Empiric antibiotics. 7. We will also reach out to the family as well. 8. Discussed with RN. We will follow along with you. addend: d/w son for possible Bronch. R/B explained. He agrees to proceed ALINA HORVATH MD Sep 17, 2021 09:32
--- NOTE | 2021-09-17 09:41 | RAD ---
Chest AP portable at 0909: Reason for examination: Pneumonia. Comparison is made to previous study dated 09/14/[address] chest dated 09/15/2021. Left central venous line is present with the tip in the superior vena cava proximally. There continue to be changes consistent with collapse of the left lung field with shift of mediastinu m to the left. The right lung field show some focal parenchymal opacities at the right lung base whic h may represent some patchy infiltrates. No pleural effusion or pneumothorax is seen in the right. No acute bony abnormalities are seen. IMPRESSION: Changes consistent with collapse of the left lung field with shift of the mediastinum to the left. Focal pulmonary opacities at the right lung base laterally which may reflect some focal infiltrates. Electronically signed by: Nichelle Swan MD (09/17/2021 9:39 AM) LAURA
[2021-09-17 10:27] LABS: HEMATOCRIT 26.7 % (36.0-47.0); RED BLOOD COUNT 3.67 x10^6/uL (3.50-5.40); RED CELL DISTRIBUTION WIDTH 17.2 % (11.5-14.5); WHITE BLOOD COUNT 13.6 x10^3/uL (4.0-11.0)
[2021-09-17 10:28] LABS: CALCIUM 7.8 mg/dL (8.5-10.1); CREATININE 0.6 mg/dL (0.6-1.0); GFR 114.7
--- NOTE | 2021-09-17 10:28 | PN ---
DATE: 09/17/2021 SUBJECTIVE: The patient is resting, slightly propped up in bed, slightly tachypneic. She is profoundly demented, does not really give any useful information. She apparently underwent bronchoscopy yesterday and was found to have significant mucus plugs seen in the left mainstem bronchus and also minimally in the right mainstem bronchus. She underwent therapeutic bronchoscopy performed and all secretions were removed. The patency of the airways achieved and no endobronchial lesion was seen and the bronchoalveolar lavage was performed from the left mainstem and sent for appropriate studies. PHYSICAL EXAMINATION: GENERAL: When I examined her this morning, she was somewhat pale, not jaundiced, cyanosed. No lymphadenopathy, no thyromegaly, no jugular venous distention. No lower limb edema. VITAL SIGNS: Her heart rate was 111, blood pressure is 141/91, temperature was 98.3, respiratory rate was 24 and oxygen saturation was 93% on 3.5 liters of oxygen. HEAD, EYES, EARS, NOSE, AND THROAT: Normocephalic, atraumatic. NECK: Supple. HEART: Normal first and second heart sounds. No gallop, rub or murmur. CHEST: Clear to auscultation, no crepitation or rhonchi. On the right side, markedly reduced chest expansion; reduced air entry on the left side. I could not appreciate any crepitation or rhonchi. ABDOMEN: Distended, soft, nontender. NEUROLOGIC: She is demented but without any obvious lateralizing sign. She moves extremities spontaneously, although she is mostly bedbound. She has an indwelling Casey catheter. Her intake was incompletely recorded, output was 450. LABORATORY DATA: As of yesterday, her white cell count was 9.2, hemoglobin 7.1, hematocrit 23, MCV 74 and platelet count 465,000. Serum sodium was 141, potassium 3.6, chloride 106, bicarbonate 32, anion gap of 3, BUN 9, creatinine 0.6. Estimated GFR was 114 mL per minute. Her glucose 115, calcium was 7.8. Total bilirubin, AST, ALT, alkaline phosphatase were normal. She has had a chest x-ray done this morning, which basically showed that she has left central venous line is present with the tip in the superior vena cava proximally, there continued to be changes consistent with collapse of the left lung field and ____ mediastinum to the left, the right lung johnson show some focal parenchymal opacities at the right lung base, which may represent some patchy infiltrate, no pleural effusion or pneumothorax seen in the right. No acute bony abnormalities are seen. ASSESSMENT: 1. Acute hypoxic respiratory failure for which she continues to be on 3 liters of oxygen by nasal cannula. 2. Complete left upper and left lower lobe collapse due to mucous plugging, status post bronchoscopy and mucus suctioning with a latency of airways. 3. Urinary tract infection with growth of Aerococcus urinae for which she is on IV ceftriaxone. 4. The patient seems to be somewhat more distressed and short of breath. I discontinued her IV fluid and she was seen by the speech therapist at [facility] and she has dysphagia with thin liquid. She has also anemia and her H and H is drifting down so I have arranged her to have a stat CBC and CMP and we will transfuse her if her hemoglobin is 7 or less than 7. MANNY DR: Blair TID: [id number]
[2021-09-17 10:34] LABS: ALBUMIN 1.9 g/dL (3.4-5.0); ALBUMIN/GLOBULIN RATIO 0.5 (1.0-1.7); TOTAL BILIRUBIN 0.4 mg/dL (0.2-1.0); TOTAL PROTEIN 5.4 g/dL (6.4-8.2)
[2021-09-18] VITALS (8 sets, daily range): BP systolic 87–133; BP diastolic 47–99
[2021-09-18] MEDS: PIPERACILLIN/TAZOBACTAM 3.375 GM in IV NORMAL SALINE 50ML 50 ML IV SCH ×5 (00:19→23:34)
[2021-09-18] MEDS: IPRATRPIUM/ALBUTEROL 0.5/2.5MG 3 ML NEBU. NEB SCH ×4 (07:22→20:23)
[2021-09-18] MEDS ORDERED: DIGOXIN IV 500 MCG/2 ML AMPUL. IV ONE ×2 (07:30→11:15)
[2021-09-18 07:44] LABS: HEMATOCRIT 27.1 % (36.0-47.0); HEMOGLOBIN 8.2 g/dL (12.0-15.5); RED BLOOD COUNT 3.73 x10^6/uL (3.50-5.40); WHITE BLOOD COUNT 18.4 x10^3/uL (4.0-11.0)
[2021-09-18 08:06] LABS: CALCIUM 8.1 mg/dL (8.5-10.1); CREATININE 0.7 mg/dL (0.6-1.0); POTASSIUM 3.8 mmol/L (3.5-5.1)
[2021-09-18] MEDS: LACTOBACILLUS RHAMNOSUS GG 1 CAPSULE. PO SCH ×2 (09:00→20:36)
--- NOTE | 2021-09-18 09:15 | RAD ---
Single view chest dated 09/18/2021 9:11 AM: COMPARISON: 09/17/2021 Clinical Indication: Shortness of breath. Findings: Single upright portable exam of the chest was performed. Heart and mediastinal contours are stable. C omplete opacification of the left hemithorax, unchanged. There is a left-sided central catheter, ubaldo lar position. The right lung remains clear. Prominent hiatal hernia. IMPRESSION: 1. Complete opacification left hemithorax, similar to prior study. 2. No new abnormality. Electronically signed by: Checo Iqbal MD (09/18/2021 9:13 AM) [id number]
--- NOTE | 2021-09-18 09:37 | PN ---
DATE: 09/18/2021 SUBJECTIVE: The patient is resting, slightly propped up, clearly tachypneic. She apparently went into atrial fibrillation with a rapid ventricular response. She did receive 500 mcg of IV digoxin, heart rate came down. Her blood pressure also improved. Clinically, she continued to have reduced chest expansion, absent breath sounds on the left side and a chest x-ray yesterday showed that she continued to have a total collapse of the left lung. PHYSICAL EXAMINATION: GENERAL: When I examined her this morning, she was pale, but not jaundiced or cyanosed, no lymphadenopathy, no thyromegaly, no jugular venous distention. No lower limb edema. VITAL SIGNS: Her heart rate was 114, blood pressure was 133/99, temperature was 98.6, respiratory rate was 20 and oxygen saturation was 93% on 3 liters of oxygen. HEAD, EYES, EARS, NOSE, AND THROAT: Normocephalic, atraumatic. NECK: Supple. HEART: Showed normal first and second heart sounds. No gallop, rub or murmur. CHEST: Showed good chest expansion with air entry on the right side, reduced expansion, reduced air entry on the left side. I could not really appreciate any crepitation or rhonchi. ABDOMEN: Scaphoid, soft, nontender. NEUROLOGIC: She was demented without any obvious lateralizing sign. Her intake over the last 24 hours was incompletely recorded, output was 950 mL. LABORATORY DATA: Her white cell count this morning was 18.4, hemoglobin 8.2, hematocrit 27, MCV 73 and platelet count of 147,000. Her chemistry showed a serum sodium 138, potassium 3.8, chloride 102, bicarbonate 28, anion gap of 8, BUN 12, creatinine 0.7. Estimated GFR was 96 mL per minute. Her glucose was 146 and calcium was 8.1. ASSESSMENT: 1. Acute hypoxic respiratory failure for which she continues to be on 3 liters of oxygen by nasal cannula. 2. Complete left upper and left lower lobe collapse due to mucus plugging, status post bronchoscopy and mucus suctioning with patency of airways; however, the patient's repeat chest x-ray yesterday showed that her left lung again is collapsed, likely due to mucus plugging, she continued to always prefer to lie on the left side. 3. Urinary tract infection for which she grew Aerococcus urinae for which she was on IV ceftriaxone. 4. Atrial fibrillation with rapid ventricular response for which she did receive treatment with digoxin 500 mcg IV. PLAN: Plan is to transfer the patient to [address] [place] [address], have arranged for her to have a stat chest x-ray, stat ABGs and 12-lead EKGs. I have consulted the environmental marketing representative and we will start her on Cardimeena drcayden. We have to talk to the family regarding goals of care given that she is extremely demented and with advanced age. IVANNA DR: Bliar TID: [id number]
--- NOTE | 2021-09-18 10:05 | PDOC ---
PULMONARY PROGRESS NOTES DATE: 09/18/21 TIME: 10:01 Subjective Patient remains on nasal cannula oxygen, does not appear to be in any distress, No overnight concerns from nursing, afebrile Status post bronchoscopy 09/16/2021 Patient has developed atrial fibrillation with rapid ventricular response today. Vitals Vital Signs Date Time Temp Pulse Resp B/P (MAP) Pulse Ox O2 Delivery O2 Flow Rate FiO2 09/18/21 07:30 114 118/64 09/18/21 07:25 Nasal Cannula 4.0 09/18/21 07:00 98.6 20 93 98.6 Comments Patient is unable to report review of systems secondary to current clinical state, patient has significant underlying dementia General: No acute distress Lungs: Other (diminshed ) Cardiovascular: S1, S2 Abdomen: Soft, Non-tender Extremities: Other (trace BLE) Skin: Warm, Dry Labs Laboratory Tests Test 09/17/21 10:12 09/18/21 07:30 White Blood Count 13.6 x10^3/uL (4.0-11.0) 18.4 x10^3/uL (4.0-11.0) Red Blood Count 3.67 x10^6/uL (3.50-5.40) 3.73 x10^6/uL (3.50-5.40) Hemoglobin 8.0 g/dL (12.0-15.5) 8.2 g/dL (12.0-15.5) Hematocrit 26.7 % (36.0-47.0) 27.1 % (36.0-47.0) Mean Corpuscular Volume 73 fL (79-100) 73 fL (79-100) Mean Corpuscular Hemoglobin 22 pg (25-35) 22 pg (25-35) Mean Corpuscular Hemoglobin Concent 30 g/dL (31-37) 30 g/dL (31-37) Red Cell Distribution Width 17.2 % (11.5-14.5) 17.0 % (11.5-14.5) Platelet Count 634 x10^3/uL (140-400) 747 x10^3/uL (140-400) Sodium Level 138 mmol/L (136-145) 138 mmol/L (136-145) Potassium Level 4.0 mmol/L (3.5-5.1) 3.8 mmol/L (3.5-5.1) Chloride Level 105 mmol/L (98-107) 102 mmol/L (98-107) Carbon Dioxide Level 28 mmol/L (21-32) 28 mmol/L (21-32) Anion Gap 5 (6-14) 8 (6-14) Blood Urea Nitrogen 8 mg/dL (7-20) 12 mg/dL (7-20) Creatinine 0.6 mg/dL (0.6-1.0) 0.7 mg/dL (0.6-1.0) Estimated GFR (Cockcroft-Gault) 114.7 96.0 BUN/Creatinine Ratio 13 (6-20) Glucose Level 142 mg/dL (70-99) 146 mg/dL (70-99) Calcium Level 7.8 mg/dL (8.5-10.1) 8.1 mg/dL (8.5-10.1) Total Bilirubin 0.4 mg/dL (0.2-1.0) Aspartate Amino Transf (AST/SGOT) 9 U/L (15-37) Alanine Aminotransferase (ALT/SGPT) 12 U/L (14-59) Alkaline Phosphatase 89 U/L (46-116) Total Protein 5.4 g/dL (6.4-8.2) Albumin 1.9 g/dL (3.4-5.0) Albumin/Globulin Ratio 0.5 (1.0-1.7) Laboratory Tests Test 09/17/21 10:12 09/18/21 07:30 White Blood Count 13.6 x10^3/uL (4.0-11.0) 18.4 x10^3/uL (4.0-11.0) Red Blood Count 3.67 x10^6/uL (3.50-5.40) 3.73 x10^6/uL (3.50-5.40) Hemoglobin 8.0 g/dL (12.0-15.5) 8.2 g/dL (12.0-15.5) Hematocrit 26.7 % (36.0-47.0) 27.1 % (36.0-47.0) Mean Corpuscular Volume 73 fL (79-100) 73 fL (79-100) Mean Corpuscular Hemoglobin 22 pg (25-35) 22 pg (25-35) Mean Corpuscular Hemoglobin Concent 30 g/dL (31-37) 30 g/dL (31-37) Red Cell Distribution Width 17.2 % (11.5-14.5) 17.0 % (11.5-14.5) Platelet Count 634 x10^3/uL (140-400) 747 x10^3/uL (140-400) Sodium Level 138 mmol/L (136-145) 138 mmol/L (136-145) Potassium Level 4.0 mmol/L (3.5-5.1) 3.8 mmol/L (3.5-5.1) Chloride Level 105 mmol/L (98-107) 102 mmol/L (98-107) Carbon Dioxide Level 28 mmol/L (21-32) 28 mmol/L (21-32) Anion Gap 5 (6-14) 8 (6-14) Blood Urea Nitrogen 8 mg/dL (7-20) 12 mg/dL (7-20) Creatinine 0.6 mg/dL (0.6-1.0) 0.7 mg/dL (0.6-1.0) Estimated GFR (Cockcroft-Gault) 114.7 96.0 BUN/Creatinine Ratio 13 (6-20) Glucose Level 142 mg/dL (70-99) 146 mg/dL (70-99) Calcium Level 7.8 mg/dL (8.5-10.1) 8.1 mg/dL (8.5-10.1) Total Bilirubin 0.4 mg/dL (0.2-1.0) Aspartate Amino Transf (AST/SGOT) 9 U/L (15-37) Alanine Aminotransferase (ALT/SGPT) 12 U/L (14-59) Alkaline Phosphatase 89 U/L (46-116) Total Protein 5.4 g/dL (6.4-8.2) Albumin 1.9 g/dL (3.4-5.0) Albumin/Globulin Ratio 0.5 (1.0-1.7) Medications Active Scripts Medications Dose Route/Sig Max Daily Dose Days Date Category Spiriva (Tiotropium [place]) 18 Mcg Cap.w.dev 1 Cap IH DAILY 09/14/21 Reported Comments Repeat chest x-ray 24-hour post bronchoscopy shows recurrent left-sided collapse Impression . IMPRESSION: 1. Acute hypoxic respiratory failure secondary to encephalopathy and collapsed left lung. 2. Abnormal chest x-ray with near complete opacification of left lung with ipsilateral mediastinal shift. This is suggestive of mucus plug. There may be a component of pleural effusion as well. Status post bronchoscopy with removal of thick white to yellow secretions on the left lung 3. Encephalopathy. CT head negative for any ischemic event or acute hemorrhage. We will obtain a followup arterial blood gases. 4. History of urinary tract infection a month ago. 5. History of COVID-19 two months ago. 6. The patient initially presented at [facility] with hypotension and was fluid resuscitated. Blood pressure is stabilized. 7. New onset atrial fibrillation with rapid ventricular response. Plan . Continue supplemental oxygen, currently on 3 L nasal cannula Bronchodilators Continue antibiotics CTA of chest reviewed. Mostly left-sided mucous plug. There is associated pleural effusion. Clinically less likely hemothorax. Status post bronchoscopy 09/17/2021, chest x-ray today shows ongoing left lobe complete atelectasis likely secondary to recurrent mucous plugging, follow-up bronc washings, will benefit from repeat bronchoscopy once atrial fibrillation is under control. Have discussed with patient's son. I did address her pulmonary status and wanted to asked the son how aggressive they want to be. He is agreeable to proceed with the bronchoscopy. Have discussed with cardiology. Will be managing atrial fibrillation. Once rate is under control she likely will have repeat bronchoscopy on Sunday. DVT/GI prophylaxis Discussed with RN Patient is a DO NOT RESUSCITATE ALINA HORVATH MD Sep 18, 2021 10:05
--- NOTE | 2021-09-18 10:40 | PDOC2 ---
CARDIOLOGY CONSULT NOTE DATE OF SERVICE: DATE: 09/18/21 TIME: 10:13 CHIEF COMPLAINT: Afib HPI: Patient is an 85 year old female who presents with afib with rvr that started 2 days ago. She was admitted on 09/14 due to total L. lung collapse from [facility]. Repeat chest xray and CT showed normal fully expanded lung. PMH include dementia, anemia of chronic disease, arthritis and asthma. She was started on digoxin and is also on zosyn, labetalol and albuterol. Patient is awake and alert but is unable to engage in conversation at this time. She also has an active DNR. PMHX: Dementia Anemia of chronic disease Sepsis secondary to UTI Arthritis SOCHX: Unable to be obtained. Patient has dementia. FAMHX: Non-contributory CURRENT MEDS: Current Medications Medications (Trade) Dose Ordered Sig/Delores Route PRN Reason Start Time Stop Time Status Last Admin Dose Admin Digoxin (Lanoxin) 500 mcg 1X ONCE IV 09/18/21 07:30 09/18/21 07:31 DC 09/18/21 07:30 ALLERGIES: Allergies Coded Allergies Type Severity Reaction Last Updated Verified No Known Drug Allergies 09/16/21 No ROS: Unable to be obtained due to dementia. PHYSICAL EXAM: Vital Signs/I&O: Vital Signs Date Time Temp Pulse Resp B/P (MAP) Pulse Ox O2 Delivery O2 Flow Rate FiO2 09/18/21 08:00 Nasal Cannula 4.0 09/18/21 07:30 114 118/64 09/18/21 07:00 98.6 20 93 98.6 I & O 09/17/21 09/17/21 09/18/21 15:00 23:00 07:00 Intake Total 50 ml 50 ml Output Total 300 ml 325 ml Balance -300 ml 50 ml -275 ml Physical Exam: Patient is awake and alert but non-conversational HEENT: PERRLA, atraumatic CV: Irregular rate, S1 and S2 heard without murmurs Lungs: Clear to auscultation b/l Extremities: Pulses palpable, no ankle edema, edema in both feet with bulla on left foot GI: no hepatomegaly or guarding DIAGNOSTIC TESTING: Labs reviewed. Lab Laboratory Tests Test 09/18/21 07:30 White Blood Count 18.4 x10^3/uL (4.0-11.0) H Red Blood Count 3.73 x10^6/uL (3.50-5.40) Hemoglobin 8.2 g/dL (12.0-15.5) L Hematocrit 27.1 % (36.0-47.0) L Mean Corpuscular Volume 73 fL (79-100) L Mean Corpuscular Hemoglobin 22 pg (25-35) L Mean Corpuscular Hemoglobin Concent 30 g/dL (31-37) L Red Cell Distribution Width 17.0 % (11.5-14.5) H Platelet Count 747 x10^3/uL (140-400) H Sodium Level 138 mmol/L (136-145) Potassium Level 3.8 mmol/L (3.5-5.1) Chloride Level 102 mmol/L (98-107) Carbon Dioxide Level 28 mmol/L (21-32) Anion Gap 8 (6-14) Blood Urea Nitrogen 12 mg/dL (7-20) Creatinine 0.7 mg/dL (0.6-1.0) Estimated GFR (Cockcroft-Gault) 96.0 Glucose Level 146 mg/dL (70-99) H Calcium Level 8.1 mg/dL (8.5-10.1) L Laboratory Tests 09/18/21 07:30 ASSESSMENT: 1. Atrial fibrillation secondary to anemia 2. Dementia 3. Anemia of chronic disease PLAN: 1. Given anemia, frailty, complete left lung obstruction, it will be difficult to treat her afib. Would favor expedited bronch to remove mucous plugging. 2. Patient also not candidate for cardioversion as she is anemic and likely unable to tolerate anticoagulation. 3. Will continue rate control with digoxin and low dose metoprolol and monitor. Supportive care. Consider echo after stabilization. Thanks UMM TINEO MD Sep 18, 2021 10:40
--- NOTE | 2021-09-18 15:01 | EKG ---
[facility] [address] [place] [address] Test Date: 2021-09-18 Test Time: 13:46:38 Pat Name: SANDI HIGHTOWER Department: Room: [facility] Gender: F Chha: : 1935 Requested By: QUAN GORE Order Number: [id number] Reading MD: Cayetano Richardson MD Measurements Intervals [place] Rate: 100 P: [place]: QRS: 204 QRSD: 62 T: -9 QT: 268 QTc: 348 Interpretive Statements ATRIAL FIBRILLATION CONSIDER ANTEROLATERAL ISCHEMIA LIMB LEAD MISPLACEMENT Electronically Signed On 09-20-2021 6:58:51 CDT by Cayetano Richardson MD
[2021-09-18] MEDS ORDERED: IV NORMAL SALINE 500ML BAG 500 ML IV ONE (18:30)
[2021-09-18] MEDS: MORPHINE SULFATE 2 MG/ML INJ. IVP PRN ×2 (18:42→23:41)
[2021-09-19 02:52] VITALS: BP 102/53
[2021-09-19] MEDS: MORPHINE SULFATE 2 MG/ML INJ. IVP PRN ×4 (04:38→12:14)
[2021-09-19] MEDS: PIPERACILLIN/TAZOBACTAM 3.375 GM in IV NORMAL SALINE 50ML 50 ML IV SCH (05:15)
[2021-09-19] MEDS ORDERED: ALTEPLASE 1MG SYRINGE. INT CAT ONE (06:30)
[2021-09-19 07:00] VITALS: BP 102/55
[2021-09-19] MEDS: IPRATRPIUM/ALBUTEROL 0.5/2.5MG 3 ML NEBU. NEB SCH ×2 (07:25→11:51)
[2021-09-19] MEDS: LACTOBACILLUS RHAMNOSUS GG 1 CAPSULE. PO SCH (09:00)
--- NOTE | 2021-09-19 10:34 | PDOC ---
PULMONARY PROGRESS NOTES DATE: 09/19/21 TIME: 10:32 Subjective Patient noted to be severely hypoxic despite 100% FiO2 via BiPAP. Oxygen saturations in the 60s and low 70s. Patient's son is at the bedside. Is atrial fibrillation with a rate in the low 100. Vitals Vital Signs Date Time Temp Pulse Resp B/P (MAP) Pulse Ox O2 Delivery O2 Flow Rate FiO2 09/19/21 09:54 30 69 BiPAP/CPAP 09/19/21 07:26 15.0 09/19/21 07:00 98.4 102 102/55 (71) 98.4 Comments Patient is unable to report review of systems secondary to current clinical state, patient has significant underlying dementia General: Lethargic Lungs: Other (diminshed ) Cardiovascular: S1, S2 Abdomen: Soft, Non-tender Extremities: Other (trace BLE) Skin: Warm, Dry Labs Laboratory Tests Test 09/18/21 07:30 White Blood Count 18.4 x10^3/uL (4.0-11.0) Red Blood Count 3.73 x10^6/uL (3.50-5.40) Hemoglobin 8.2 g/dL (12.0-15.5) Hematocrit 27.1 % (36.0-47.0) Mean Corpuscular Volume 73 fL (79-100) Mean Corpuscular Hemoglobin 22 pg (25-35) Mean Corpuscular Hemoglobin Concent 30 g/dL (31-37) Red Cell Distribution Width 17.0 % (11.5-14.5) Platelet Count 747 x10^3/uL (140-400) Sodium Level 138 mmol/L (136-145) Potassium Level 3.8 mmol/L (3.5-5.1) Chloride Level 102 mmol/L (98-107) Carbon Dioxide Level 28 mmol/L (21-32) Anion Gap 8 (6-14) Blood Urea Nitrogen 12 mg/dL (7-20) Creatinine 0.7 mg/dL (0.6-1.0) Estimated GFR (Cockcroft-Gault) 96.0 Glucose Level 146 mg/dL (70-99) Calcium Level 8.1 mg/dL (8.5-10.1) Medications Active Scripts Medications Dose Route/Sig Max Daily Dose Days Date Category Spiriva (Tiotropium [place]) 18 Mcg Cap.w.dev 1 Cap IH DAILY 09/14/21 Reported Comments Repeat chest x-ray 24-hour post bronchoscopy shows recurrent left-sided collapse Impression . IMPRESSION: 1. Acute hypoxic respiratory failure secondary to encephalopathy and collapsed left lung. Worsening hypoxia. Now 100% oxygen via BiPAP. 2. Abnormal chest x-ray with near complete opacification of left lung with ipsilateral mediastinal shift. This is suggestive of mucus plug. There may be a component of pleural effusion as well. Status post bronchoscopy with removal of thick white to yellow secretions on the left lung 3. Encephalopathy. CT head negative for any ischemic event or acute hemorrhage. We will obtain a followup arterial blood gases. 4. History of urinary tract infection a month ago. 5. History of COVID-19 two months ago. 6. The patient initially presented at [facility] with hypotension and was fluid resuscitated. Blood pressure is stabilized. 7. New onset atrial fibrillation with rapid ventricular response. Plan . I had a long discussion with patient's son at the bedside. I did explain to him about poor prognosis. She has severe underlying dementia. She now has recurrent collapse of the left lung with mucous plug. She is unable to clear secretions due to her mental status. She also has atrial fibrillation with RVR. Cardizem drip could not be used due to hypotension. I recommended bronchoscopy cannot be performed as she is too unstable for that. I also recommended that we should consider palliative approach and keep her comfortable. Patient's son completely agrees and also has decided to go with palliative care. Morphine order for palliation given to the nurse. We will keep her comfortable. Patient remains DNR/DNI ALINA HORVATH MD Sep 19, 2021 10:34
[2021-09-19 11:00] VITALS: BP 89/50
--- NOTE | 2021-09-19 13:18 | NUR ---
NOTIFIED OF PATIENT PASSING. FAMILY AT THE BEDSIDE.
--- NOTE | 2021-09-19 15:05 | NUR ---
PATIENT AT 1257. FAMILY AT THE BEDSIDE. PROCESSED BODY AND WENT TO [facility] [place].
--- NOTE | 2021-09-19 16:11 | RAD ---
XR CHEST 1V 09/19/2021 8:56 AM INDICATION: Pneumonia COMPARISON: 327 2 TECHNIQUE: Portable frontal view of the chest is provided. FINDINGS: The cardiomediastinal silhouette is within normal limits. There is improving aeration at the left mahogany g apex. Left chest wall infusion port catheter is identified in similar position. There is a moderate to large left pleural effusion with adjacent compressive atelectasis versus infiltrate. There is imp roving mediastinal shift to the left. There is suggestion of a new cystic area within the right upper lobe with thick wall measuring approx imately 5.5 x 3.3 cm. No pneumothorax. No suspicious osseous abnormality. IMPRESSION: New cystic area in the right upper lobe with thick wall measuring approximately 5.5 x 3.3 cm. Further catheterization with CT chest with contrast is recommended. Developing abscess could have similar ap pearance. There is improving aeration of the left upper lobe. Electronically signed by: Yuridia Delgado MD (09/19/2021 4:09 PM) [facility]
--- NOTE | 2021-09-19 23:59 | PN ---
DATE: 09/19/2021 SUBJECTIVE: The patient is resting, slightly propped up, clearly tachypneic, hypotensive, hypoxic. Apparently the family has opted for comfort care and she is now on morphine 2 mg IV every hour. PHYSICAL EXAMINATION: GENERAL: When I examined her, she was pale, not jaundiced, cyanosed or thyromegaly. No jugular venous distention. No lower limb edema. VITAL SIGNS: Her heart rate was 102, blood pressure was 95/49, temperature was 98, respiratory rate was 30 and oxygen saturation was 75% on 2 liters of oxygen. HEAD, EYES, EARS, NOSE, AND THROAT: Normocephalic, atraumatic. NECK: Supple. HEART: Normal first and second heart sounds. No gallop, rub or murmur. CHEST: Showed central trachea. Good chest expansion with air entry on the right side, absent breath sounds and decreased chest expansion on the left side. ABDOMEN: Scaphoid, soft, nontender. NEUROLOGIC: She was demented without any obvious lateralizing sign. ASSESSMENT: 1. Acute hypoxic respiratory failure secondary to collapsed left lung with worsening hypoxia. 2. Metabolic encephalopathy. 3. History of urinary tract infection. 4. Atrial fibrillation with rapid ventricular response. 5. Advanced dementia. PLAN: To continue with comfort care. She is now on IV morphine, but I will add also Ativan and . MELI/DAKOTA/SISSY DR: MELI/mike TID: [id number]
--- NOTE | 2021-09-24 12:10 | DS ---
DATE OF DISCHARGE: 09/19/2021 SUMMARY HOSPITAL COURSE: The patient is an 85-year-old -[place] female patient who was transferred from [facility]. She was admitted there originally with hypotension and was found to be septic due to urinary tract infection, treated aggressively with IV fluids and IV antibiotic. Chest x-ray done showed that the patient has total collapse of the left lung, felt to be due to mucus plugging and therefore, the patient was transferred to [facility] to consult the twisting machine operator. The patient has an underlying diagnosis of dementia, bronchial asthma, degenerative arthritis and anemia of chronic disease. She was started on IV antibiotic for possible superimposed infection and was seen by the twisting machine operator and she underwent bronchoscopy and suctioned all the mucus from the left main bronchus. Unfortunately, a repeat chest x-ray next day showed that the patient continued to have collapsed lung and she also developed tachycardia and hypotension and apparently discussion was held with the family regarding goals of care and basically her son agreed to comfort and hospice care and the patient was started on IV morphine, Ativan, scopolamine and basically her condition has gradually worsened. Code status was changed to DNR/DNI and she was noted by the nursing staff to have no spontaneous breathing, no palpable pulses or audible heart sounds and was pronounced at around 1:18 p.m. on 09/19/2021. CAUSE OF : 1. Acute hypoxic respiratory failure. 2. Left lung collapse due to mucus plugging. 3. Possible aspiration pneumonia. 4. Acute diastolic congestive heart failure. 5. Atrial fibrillation with rapid ventricular response. LAKSHMI/TRINI DR: Blair TID: [id number]
== END 2021-09-19 12:57 | DRG 871 ==
LOC: 5 NORTH 19:35 → 6 SOUTH 09-18 09:45
PROVIDERS: ADMIT Internal Medicine; ATTEND Internal Medicine
PROC: 0B978ZZ Drainage of Left Main Bronchus, Via Natural or Artificial Opening Endoscopic (ICD-10-PCS; 2021-09-16)
PROC: 5A09357 Assistance with Respiratory Ventilation, Less than 24 Consecutive Hours, Continuous Positive Airway Pressure (ICD-10-PCS; principal; 2021-09-19)
DX: A41.9 Sepsis, unspecified organism (principal); J96.01 Acute respiratory failure with hypoxia; G93.41 Metabolic encephalopathy; I50.31 Acute diastolic (congestive) heart failure; J69.0 Pneumonitis due to inhalation of food and vomit; J98.11 Atelectasis; N39.0 Urinary tract infection, site not specified; J98.19 Other pulmonary collapse; T17.998A Other foreign object in respiratory tract, part unspecified causing other injury, initial encounter; R65.20 Severe sepsis without septic shock; D63.8 Anemia in other chronic diseases classified elsewhere; F03.90 Unspecified dementia, unspecified severity, without behavioral disturbance, psychotic disturbance, mood disturbance, and anxiety; I48.91 Unspecified atrial fibrillation; J45.909 Unspecified asthma, uncomplicated; K57.30 Diverticulosis of large intestine without perforation or abscess without bleeding; M19.90 Unspecified osteoarthritis, unspecified site; R13.10 Dysphagia, unspecified; R29.810 Facial weakness; R93.89 Abnormal findings on diagnostic imaging of other specified body structures; Z51.5 Encounter for palliative care; Z66 Do not resuscitate; Z86.16 Personal history of COVID-19; Z87.440 Personal history of urinary (tract) infections
CPT/HCPCS: 31622; 36415; 36600; 71045; 71250; 80048; 80053; 82805; 83735; 85025; 85027; 86850; 86900; 86901; 87070; 87116; 87205; 88112; 93005; 94640; 94660; 94760; J0696; J1160; J2060; J2270; J2543; J2704; J2997; J3490; J7040; J7042; G0378